=== PATIENT | female | born 2000 | race Caucasian/White ===

== ENCOUNTER 2019-09-14 21:57 | Emergency (ER) | payer BC, SELFPAY ==
[2019-09-14 21:59] VITALS: BP 135/61; PULSE 66; RESP 17; TEMP 36.4; O2SAT 100
[2019-09-14 23:09] VITALS: BP 128/77; PULSE 69; RESP 18; O2SAT 100
--- NOTE | 2019-09-15 00:35 | ED.DENTAL ---
HPI - Dental/Oral General Chief complaint: Dental/Oral Stated complaint: Tooth pain Time Seen by Provider: 09/15/19 00:29 History of Present Illness HPI Narrative: Patient comes to the ER with her boyfriend's mother, for right upper rear molar pain. The tooth has been broken off for years, but the pain is recent, 8 out of 10, with swelling of the gum. She feels like her cheek is swelling too. She has not had any fever chills or sweats. She just finished her semester of art in college. She does not smoke drink or do drugs. She has not had any surgery. She has no drug allergies. She ran out of her control last month. Location: Tooth # (1) Related Data Allergies Allergy/AdvReac Type Severity Reaction Status Date / Time latex Allergy Intermediate Hives / Verified 07/30/18 16:09 Red Face adhesive Allergy Unknown Swelling Verified 09/14/19 21:59 Review of Systems Review of Systems: Narrative: CONSTITUTIONAL: Denies fever, chills, or sweats. EYES: Denies visual changes, redness, or discharge. ENT: Denies rhinorrhea, congestion, sore throat, or otalgia. CARDIOVASCULAR: Denies chest pain, palpitations, or edema. RESPIRATORY: Denies cough or dyspnea. GASTROINTESTINAL: Denies abdominal pain, nausea, vomiting, or diarrhea. GENITOURINARY: Denies dysuria or hematuria. SKIN: Denies rash or itching. MUSCULOSKELETAL: Denies back pain, joint pain, or myalgia. NEUROLOGIC: Denies headache, numbness, or weakness. PSYCHIATRIC: Denies anxiety or depression. [facility] Social History Social History (Updated 09/15/19 @ 00:38 by Yoly Toure MD) Smoking status: Never smoker Alcohol intake: never Substance use: never Gender identity (if verbalized by the patient): Female Exam Narrative: Exam Narrative: GENERAL: Well-appearing, well-nourished, and in no acute distress. HEAD: Normocephalic, atraumatic. EYES: PERRLA and EOMI. ENT: Nares clear, no rhinorrhea or epistaxis. Mucous membranes moist. NECK: Supple. CHEST: Clear to auscultation. No respiratory distress. HEART: Regular rate and rhythm. No murmur heard. Normal peripheral pulses. ABDOMEN: Soft, nontender, nondistended, normal active bowel sounds. EXTREMITIES: Normal range of motion. No edema. SKIN: Warm, dry, no rash. NEURO: No focal deficits. Alert and oriented x3. PSYCH: Normal mood and affect. HENMT: Other: Tooth #1 is fractured at the gumline. She has some swelling and tenderness around. There is no discharge. Course Vital Signs Vital signs: Vital Signs Temperature 97.5 F L 09/14/19 21:59 Pulse Rate 66 09/14/19 21:59 Respiratory Rate 17 09/14/19 21:59 Blood Pressure 135/61 09/14/19 21:59 Pulse Oximetry 100 09/14/19 21:59 Temperature 97.5 F L 09/14/19 21:59 Pulse Rate 69 09/14/19 23:09 Respiratory Rate 18 09/14/19 23:09 Blood Pressure 128/77 09/14/19 23:09 Pulse Oximetry 100 09/14/19 23:09 MDM - Dental/Oral MDM Narrative Medical decision making narrative: She has had a broken tooth for years but she knows it is infected now. We will give her her first antibiotic here and send her home with a prescription for pain pills and antibiotic. She does not have a dentist or primary care or an oral surgeon. Her boyfriend's mother will help her find each. Differential Diagnosis Differential diagnosis: Likely dental abscess and fracture of tooth Discharge Plan Discharge Clinical Impression: Dental decay, Dental abscess Patient Disposition: Home, Self-Care Condition: Stable Instructions: Antibiotic Form Prescriptions: New penicillin V potassium 500 mg tablet 500 mg PO Q8H Qty: 30 RF: 0 naproxen sodium [Anaprox DS] 550 mg tablet 550 mg PO Q12H PRN (Reason: pain) Qty: 10 RF: 0 Follow-up/Referrals: Tyrese Benjamin Jr., MD [Physician] - (Call to make a new patient appointment) PHYSICIAN,AQUACULTURE WORKER [Primary Care Provider] - Stand Alone Forms: Work/School Release IP Time of Disposition: 00:41
[2019-09-15] MEDS: PENICILLIN V POTASSIUM 250 MG TABLET 500 MG PO (00:42)
[2019-09-15 00:57] VITALS: BP 122/79; PULSE 75; RESP 18; O2SAT 99
== END 2019-09-15 00:57 | disposition home or self-care (01) ==
PROVIDERS: Emergency Provider Emergency Medicine
DX: K02.9 Dental caries, unspecified (principal); K04.7 Periapical abscess without sinus
CPT/HCPCS: 99283; A9270

== ENCOUNTER 2023-11-17 11:46 | Outpatient (CLI) | payer BC, SELFPAY ==
--- NOTE | ~2023-11-17 | CT_ITS ---
CT of the Abdomen and Pelvis: Indication: Family history of uterine septum, elevated DHEA Technique: 2.5 mm axial scans were obtained through the abdomen and pelvis following intravenous adm inistration of 100 cc of Omnipaque 350. Dose reduction technique was used on this scan by utilizing a utomated exposure control and iterative reconstruction technique. The dose-length product (DLP) was 3 66.50 mGy-cm. Findings: Scans through the lung bases are unremarkable. The liver, spleen, pancreas, gallbladder, adrenals and kidneys are within normal limits. No evidence of aortic aneurysm. No lymphadenopathy. No bowel obstruction or bowel wall thickening. There is no evidence to suggest acute appendicitis. Images through the pelvis were performed. Urinary bladder unremarkable. No significant pelvic mass ev ident. No ascites. Impression: No significant abnormalities seen. Reviewed, dictated and finalized at [facility]. Impression: No significant abnormalities seen.
== END 2023-11-17 11:47 ==
PROVIDERS: PCP Nurse Practitioner; Visit Provider Obstetrics & Gynecology Gynecology
DX: E78.1 Pure hyperglyceridemia (principal); Z82.79 Family history of other congenital malformations, deformations and chromosomal abnormalities
CPT/HCPCS: 74177; Q9967